=== PATIENT | female | born 1935 | race Caucasian/White ===

== ENCOUNTER 2021-08-15 14:32 | Emergency (ER) | payer MEDICARE ==
[2021-08-15 16:33] LABS: BASOPHIL 0.4 % (0-2); EOSINOPHIL 2.4 % (0-7); HCT 41.6 % (37.0-47.0); HGB 12.9 g/dl (12.5-16.0); MCH 27.9 pg (25.0-31.0); MONOCYTE 5.6 % (0-12); NRBC 0; PLT 224 K/uL (150-400); RBC 4.62 M/uL (4.20-5.40); RDW 15.8 % (11.5-14.0); WBC 8.3 K/uL (4.0-10.5)
[2021-08-15 16:38] LABS: BILIRUBIN 1+ mg/dL (NEGATIVE); BLOOD NEGATIVE Ery/uL (NEGATIVE); CLARITY CLEAR (CLEAR); COLOR YELLOW (YELLOW); GLUCOSE (U) NORMAL (NORMAL); LEUKOCYTES NEGATIVE Leu/uL (NEGATIVE); NITRITE NEGATIVE (NEGATIVE); PROTEIN TRACE (LOW) mg/dL (NEGATIVE); SPECIFIC GRAVITY >=1.030 (1.001-1.030)
[2021-08-15 16:46] LABS: BACTERIA TRACE; MUCOUS MODERATE
[2021-08-15 16:48] LABS: ALBUMIN 2.2 g/dL (3.4-5.0); BILIRUBIN - TOTAL 0.4 mg/dL (0.2-1.0); CREATININE 1.17 mg/dL (0.51-0.95); GLOBULIN (CALCULATION) 4.3 g/dL; POTASSIUM 4.2 mmol/L (3.5-5.1); TOTAL PROTEIN 6.5 g/dL (6.4-8.2)
== END 2021-08-15 18:24 | disposition home or self-care (01) ==
LOC: FER 14:32
PROVIDERS: Emergency Medicine
DX: R41.82 Altered mental status, unspecified (principal); M54.2 Cervicalgia; I10 Essential (primary) hypertension; E11.9 Type 2 diabetes mellitus without complications; Z66 Do not resuscitate; Z88.5 Allergy status to narcotic agent; W19.XXXA Unspecified fall, initial encounter
CPT/HCPCS: 36415; 70450; 71045; 72125; 80053; 81001; 84443; 85025; 87088; 93005

== ENCOUNTER 2021-09-19 10:06 | Inpatient (IN) | payer MEDICARE ==
[~2021-09-19] VITALS: Ht 165.1 cm; Wt 85.0 kg
[2021-09-19 11:33] LABS: BASOPHIL 0.4 % (0-2); EOSINOPHIL 0.5 % (0-7); HCT 34.5 % (37.0-47.0); HGB 10.6 g/dl (12.5-16.0); LYMPHOCYTE 18.1 % (15-48); MCHC 30.7 g/dL (32.0-36.0); MONOCYTE 11.6 % (0-12); MPV 9.7 fL (6.0-9.5); NRBC 0; PLT 201 K/uL (150-400); RBC 3.79 M/uL (4.20-5.40); RDW 15.1 % (11.5-14.0); WBC 9.4 K/uL (4.0-10.5)
[2021-09-19 12:01] LABS: ALBUMIN 2.6 g/dL (3.4-5.0); BILIRUBIN - TOTAL 0.8 mg/dL (0.2-1.0); CREATININE 1.08 mg/dL (0.51-0.95); GLOBULIN (CALCULATION) 4.6 g/dL; POTASSIUM 4.7 mmol/L (3.5-5.1); TOTAL PROTEIN 7.2 g/dL (6.4-8.2)
[2021-09-19 12:31] LABS: BILIRUBIN NEGATIVE (NEGATIVE); BLOOD 3+ Ery/uL (NEGATIVE); GLUCOSE (U) NORMAL (NORMAL); LEUKOCYTES 2+ Leu/uL (NEGATIVE); NITRITE POSITIVE (NEGATIVE); PROTEIN 1+ mg/dL (NEGATIVE); SPECIFIC GRAVITY >=1.030 (1.001-1.030); UROBILINOGEN 0.2 mg/dL (0.2-1.0); pH 5.5 (5.0-9.0)
[2021-09-19 12:35] LABS: CLARITY CLOUDY (CLEAR); COLOR BROWN (YELLOW)
[2021-09-19 12:42] LABS: BACTERIA 3+; URINARY RBC 20-50; URINARY WBC TNTC
[2021-09-19 14:16] LABS: CKMB <0.5 ng/mL (0.0-3.6); PRO-BNP 4383 pg/mL (<450)
[2021-09-19 14:30] LABS: LACTIC ACID 1.2 mmol/L (0.4-1.9)
[2021-09-20] MEDS ORDERED: ACETAMINOPHEN325 MG PO (00:17)
[2021-09-20] MEDS ORDERED: ASPIRIN81 MG PO (00:19)
[2021-09-20] MEDS ORDERED: VITAMIN D350 MC3 PO (00:21)
[2021-09-20] MEDS ORDERED: COQ-10100 MG PO (00:22)
[2021-09-20] MEDS ORDERED: CARDIZEM CD120 MG PO (00:23)
[2021-09-20] MEDS ORDERED: ATARAX25 MG PO (00:24)
[2021-09-20] MEDS ORDERED: ELIQUIS5 MG PO (00:24)
[2021-09-20] MEDS ORDERED: JANUVIA50 MG PO (00:25)
[2021-09-20] MEDS ORDERED: SYNTHROID88 MCG PO (00:26)
[2021-09-20] MEDS ORDERED: METOPROLOL SUCC25 MG PO (00:27)
[2021-09-20] MEDS ORDERED: MYCOLOG15 GM TOP (00:31)
[2021-09-20] MEDS ORDERED: ONDANSETRON ODT4 MG PO (00:32)
[2021-09-20] MEDS ORDERED: CRESTOR20 MG PO (00:32)
[2021-09-20] MEDS ORDERED: XANAX0.5 MG PO (00:33)
[2021-09-20] MEDS ORDERED: GLUCOTROL10 MG PO (00:34)
[2021-09-20] MEDS ORDERED: LASIX20 MG PO (00:35)
[2021-09-20] MEDS ORDERED: POTASSIUM20 MEQ/11 PO (00:39)
--- NOTE | 2021-09-20 04:52 | NUR ---
PT CONCERNED WITH HER MISSING EYE GLASSES. PT WAS ADMITTED RIGHT BEFORE SHIFT CHANGE PER REPORT & THERE ARE NO EYE GLASSES FOUND IN ROOM. ASSISTED PT IN LOOKING THROUGH THE FEW THINGS SHE BROUGHT WITH HER FROM THE DETENTION. WE LOCATED AN EYE GLASSES CASE BUT IT WAS EMPTY. REDIRECTED PTS ATTENTION FOR NOW.
[2021-09-20 06:29] LABS: BASOPHIL 0.5 % (0-2); EOSINOPHIL 3.7 % (0-7); HCT 30.9 % (37.0-47.0); HGB 9.7 g/dl (12.5-16.0); LYMPHOCYTE 23.6 % (15-48); MCH 28.3 pg (25.0-31.0); MCHC 31.4 g/dL (32.0-36.0); MCV 90.1 fL (78.0-100.0); MONOCYTE 11.1 % (0-12); MPV 9.4 fL (6.0-9.5); NEUTROPHIL 60.4 % (41-80); NRBC 0; PLT 195 K/uL (150-400); RBC 3.43 M/uL (4.20-5.40); RDW 14.8 % (11.5-14.0); WBC 7.7 K/uL (4.0-10.5)
[2021-09-20 06:48] LABS: BUN/CREAT RATIO (CALC) 19.5 RATIO; CREATININE 1.13 mg/dL (0.51-0.95); MAGNESIUM 1.8 mg/dL (1.8-2.4); POTASSIUM 3.5 mmol/L (3.5-5.1)
--- NOTE | 2021-09-20 15:18 | NUR ---
09/20/21 [facility] will accept back; pt is in agreement
--- NOTE | 2021-09-21 00:29 | NUR ---
Patient complains of new onset pain in the left leg. On assessment patient reports that the back of the knee is tender to palpation. The patient has palpable pedal pulses that are equal to the pedal pulses in the right foot. The left leg is not swollen, red, or hot to the touch. All assessments are bilaterally equal, except for reported pain. SUPERVISOR [employer] notified, and SUPERVISOR [employer] will come to assess patient at bedside.
[2021-09-21 08:11] LABS: BUN/CREAT RATIO (CALC) 19.8 RATIO; CREATININE 1.31 mg/dL (0.51-0.95); POTASSIUM 3.5 mmol/L (3.5-5.1)
[2021-09-21] MEDS ORDERED: GLUCOTROL5 MG PO (09:46)
[2021-09-21] MEDS ORDERED: CEFDINIR300 MG PO (09:48)
== END 2021-09-21 13:45 | DRG 291 ==
LOC: FER 10:06 → FMS 15:25
PROVIDERS: Allergy & Immunology Allergy; Emergency Medicine; ADMIT Internal Medicine
DX: I11.0 Hypertensive heart disease with heart failure (principal); G93.41 Metabolic encephalopathy; N39.0 Urinary tract infection, site not specified; I48.20 Chronic atrial fibrillation, unspecified; I50.9 Heart failure, unspecified; Z20.822 Contact with and (suspected) exposure to COVID-19; Z66 Do not resuscitate; F41.1 Generalized anxiety disorder; E03.9 Hypothyroidism, unspecified; I25.10 Atherosclerotic heart disease of native coronary artery without angina pectoris; E55.9 Vitamin D deficiency, unspecified; F03.90 Unspecified dementia, unspecified severity, without behavioral disturbance, psychotic disturbance, mood disturbance, and anxiety; E11.9 Type 2 diabetes mellitus without complications; E78.5 Hyperlipidemia, unspecified; Z99.81 Dependence on supplemental oxygen; Z90.49 Acquired absence of other specified parts of digestive tract; Z95.1 Presence of aortocoronary bypass graft; Z88.2 Allergy status to sulfonamides; Z88.5 Allergy status to narcotic agent; Z79.82 Long term (current) use of aspirin; Z79.899 Other long term (current) drug therapy; Z79.01 Long term (current) use of anticoagulants
CPT/HCPCS: 36415; 36600; 70450; 71045; 80048; 80053; 81001; 82553; 82803; 83036; 83605; 83735; 83880; 84443; 84484; 85025; 87040; 87076; 87088; 87186; 93005; J0696; J1940; J1956; U0002

== ENCOUNTER 2021-12-09 13:49 | Emergency (ER) | payer MEDICARE ==
[~2021-12-09 13:49] MED LIST: ACETAMINOPHEN325 MG PO; ASPIRIN81 MG PO; ATARAX25 MG PO; CARDIZEM CD120 MG PO; CEFDINIR300 MG PO; COQ-10100 MG PO; CRESTOR20 MG PO; ELIQUIS5 MG PO; GLUCOTROL10 MG PO; GLUCOTROL5 MG PO; JANUVIA50 MG PO; LASIX20 MG PO; METOPROLOL SUCC25 MG PO; MYCOLOG15 GM TOP; ONDANSETRON ODT4 MG PO; POTASSIUM20 MEQ/11 PO; SYNTHROID88 MCG PO; VITAMIN D350 MC3 PO; XANAX0.5 MG PO
[2021-12-09 15:33] LABS: BASOPHIL 0.6 % (0-2); EOSINOPHIL 3.3 % (0-7); HCT 36.9 % (37.0-47.0); HGB 11.2 g/dl (12.5-16.0); LYMPHOCYTE 20.7 % (15-48); MCH 27.7 pg (25.0-31.0); MCHC 30.4 g/dL (32.0-36.0); MCV 91.3 fL (78.0-100.0); MONOCYTE 7.5 % (0-12); MPV 10.1 fL (6.0-9.5); NEUTROPHIL 67.5 % (41-80); NRBC 0; PLT 194 K/uL (150-400); RBC 4.04 M/uL (4.20-5.40); RDW 13.8 % (11.5-14.0); WBC 10.4 K/uL (4.0-10.5)
[2021-12-09 15:54] LABS: CREATININE 1.08 mg/dL (0.51-0.95); POTASSIUM 3.8 mmol/L (3.5-5.1)
[2021-12-09 17:01] LABS: BILIRUBIN NEGATIVE (NEGATIVE); BLOOD NEGATIVE Ery/uL (NEGATIVE); CLARITY CLEAR (CLEAR); COLOR YELLOW (YELLOW); GLUCOSE (U) NORMAL (NORMAL); LEUKOCYTES NEGATIVE Leu/uL (NEGATIVE); NITRITE POSITIVE (NEGATIVE); PROTEIN TRACE (LOW) mg/dL (NEGATIVE); SPECIFIC GRAVITY >=1.030 (1.001-1.030); UROBILINOGEN 0.2 mg/dL (0.2-1.0); pH 5.5 (5.0-9.0)
[2021-12-09 17:07] LABS: BACTERIA 2+
[2021-12-09] MEDS ORDERED: MACROBID100 MG PO (17:29)
== END 2021-12-09 18:49 | disposition home or self-care (01) ==
LOC: FER 13:49
PROVIDERS: Nurse Practitioner Family
DX: N39.0 Urinary tract infection, site not specified (principal); I11.0 Hypertensive heart disease with heart failure; I50.9 Heart failure, unspecified; Z88.5 Allergy status to narcotic agent
CPT/HCPCS: 36415; 70450; 72125; 73502; 73560; 80048; 81001; 85025; 87076; 87088

== ENCOUNTER 2021-12-20 08:08 | Day surgery (SDCO) | payer MEDICARE ==
[~2021-12-20] VITALS: Ht 165.1 cm; Wt 79.8 kg
[~2021-12-20 08:08] MED LIST changes: +MACROBID100 MG PO
[2021-12-20 09:53] LABS: BASOPHIL 0.8 % (0-2); EOSINOPHIL 3.5 % (0-7); HCT 41.2 % (37.0-47.0); HGB 12.6 g/dl (12.5-16.0); LYMPHOCYTE 25.4 % (15-48); MCH 27.2 pg (25.0-31.0); MCHC 30.6 g/dL (32.0-36.0); MCV 88.8 fL (78.0-100.0); MPV 9.8 fL (6.0-9.5); NEUTROPHIL 63.9 % (41-80); NRBC 0; PLT 259 K/uL (150-400); RBC 4.64 M/uL (4.20-5.40); RDW 14.1 % (11.5-14.0); WBC 9.5 K/uL (4.0-10.5)
[2021-12-20 10:23] LABS: ALBUMIN 3.2 g/dL (3.4-5.0); BILIRUBIN - TOTAL 0.6 mg/dL (0.2-1.0); BUN/CREAT RATIO (CALC) 17.2 RATIO; CREATININE 0.93 mg/dL (0.51-0.95); GLOBULIN (CALCULATION) 4.3 g/dL; POTASSIUM 3.9 mmol/L (3.5-5.1); TOTAL PROTEIN 7.5 g/dL (6.4-8.2)
[2021-12-20 10:42] LABS: INR 1.42 (0.9-1.2); PROTHROMBIN TIME 16.9 SECONDS (11.9-13.9)
[2021-12-20] MEDS ORDERED: ACETAMINOPHEN500 M1 PO (12:30)
[2021-12-20] MEDS ORDERED: ZOLOFT50 MG PO (12:31)
[2021-12-20] MEDS ORDERED: CIPRO500 MG PO (12:32)
[2021-12-21 06:42] LABS: BASOPHIL 0.9 % (0-2); EOSINOPHIL 5.2 % (0-7); HCT 38.5 % (37.0-47.0); HGB 11.9 g/dl (12.5-16.0); LYMPHOCYTE 37.5 % (15-48); MCH 27.7 pg (25.0-31.0); MCHC 30.9 g/dL (32.0-36.0); MCV 89.5 fL (78.0-100.0); MONOCYTE 6.5 % (0-12); MPV 9.8 fL (6.0-9.5); NEUTROPHIL 49.5 % (41-80); NRBC 0; PLT 253 K/uL (150-400); RDW 14.3 % (11.5-14.0); WBC 7.5 K/uL (4.0-10.5)
--- NOTE | 2021-12-21 06:45 | NUR ---
WHILE AMBULATING PATIENT TO THE BATHROOM AT APPROXIMATELY 0615, THE PATIENT STATED SHE WAS FEELING DIZZY AND FELT LIKE SHE WAS GOING TO FALL. THIS RN WAS ABLE TO GET HER ON THE TOLIET BEFORE FALLING. WITH THE HELP OF ANOTHER STAFF MEMBER, THE PATIENT GOT INTO A WHEELCHAIR AND WAS HELPED BACK INTO BED. TRAIN OPERATIONS MANAGER HOANG WAS NOTIFIED AND ORTHOSTATIC VITAL SIGNS WERE ORDERED TWICE A DAY.
[2021-12-21 07:57] LABS: BUN/CREAT RATIO (CALC) 18.3 RATIO; CREATININE 1.04 mg/dL (0.51-0.95); POTASSIUM 4.5 mmol/L (3.5-5.1)
[2021-12-21] MEDS ORDERED: XANAX0.5 MG PO (09:28)
--- NOTE | 2021-12-21 14:56 | NUR ---
THIS RN CONTACTED VARIOUS FAMILY MEMBERS IN CHART TO GET AHOLD OF SOMEONE FOR TRANSPORTATION BACK TO [facility]. PERSON TO NOTIFY PETER SAUNDERS WAS ATTEMPTED TO CALL 3 TIMES WITH NO ANSWER. GUALBERTO LEONARD NUMBER WAS NOT VERIFIED IN THE CHART AND LISTED [id number]. JANETTE STRICKLAND WAS THEN REACHED AN EMERGENCY CONTACT. THIS RN ASKED JANETTE IF PT HAD FAMILY MEMEBERS IN THE AREA TO TRANSPORT HER. JANETTE STATED ALL FAMILY WAS OUT OF STATE. SHE QUESTIONED WHY EMS ISNT TRANSPORTING AND PER [facility] WAS MADE AWARE THAT PT MEDICAID WAS CANCELLED AND WILL NOT PAY FOR PRIVATE EMS. PUBLIC ACCOUNTANT WAS THEN NOTIFIED ABOUT THE SITUATION AND A CAB VOUCHER WAS SUGGESTED. THIS RN CALLED [facility] TO ENSURE THAT STAFF WILL ASSIST PT FROM THE CAB IF THIS ROUTE IS TAKEN TO PREVENT FALLS, [facility] STATES THAT THEY WILL COME TO THE CAR AND ASSIST PT. LACHELLE SAUNDERS (SON) WAS THEN NOTFIED OF PT STATUS AND RETURN TO [facility]. SON STATES HE WILL CALL PT WHEN SHE IS SETTELED INTO [facility] AND IS OKAY WITH PT TAKING A CAB IF [facility] WILL ASSIST OUT OF THE CAR. REPORT WAS GIVEN TO KAYLEE AT 1440 AFTER 4 ATTEMPTS TO CONTACT. PT IV REMOVED, TELE REMOVED, VOIDED, DRESSED AND SITTING IN WHEELCHAIR READY FOR CAB.
== END 2021-12-21 15:14 ==
LOC: FER 08:08 → FTCU 10:43
PROVIDERS: Internal Medicine; ADMIT Internal Medicine
DX: S00.03XA Contusion of scalp, initial encounter (principal); I95.1 Orthostatic hypotension; I48.20 Chronic atrial fibrillation, unspecified; E11.9 Type 2 diabetes mellitus without complications; E03.9 Hypothyroidism, unspecified; E78.5 Hyperlipidemia, unspecified; I25.10 Atherosclerotic heart disease of native coronary artery without angina pectoris; I11.0 Hypertensive heart disease with heart failure; I50.9 Heart failure, unspecified; Z87.440 Personal history of urinary (tract) infections; Z88.2 Allergy status to sulfonamides; Z88.5 Allergy status to narcotic agent; Z79.01 Long term (current) use of anticoagulants; Z79.82 Long term (current) use of aspirin; Z79.899 Other long term (current) drug therapy; Z20.822 Contact with and (suspected) exposure to COVID-19; W01.0XXA Fall on same level from slipping, tripping and stumbling without subsequent striking against object, initial encounter
CPT/HCPCS: 36415; 70450; 80048; 80053; 82962; 85025; 85610; 85730; G0378; Q0162; U0002